=== PATIENT | female | born 1970 | race Caucasian/White ===

== ENCOUNTER 2017-03-21 10:13 | Emergency (ER) | payer OTHER ==
[~2017-03-21] VITALS: Ht 157.5 cm; Wt 59.0 kg
[~2017-03-21 10:13] MED LIST: AZIT250T PO; CIPR500S2 PO; METO25TA60 PO; PRED20TA PO
--- OUTSIDE RECORDS SUMMARY | 2017-03-21 10:18 | XMS REPORT | Continuity of Care Document ---
Author Author [facility] Address Unknown Phone Unavailable Allergies Active Description Code Type Severity Reaction Onset Reported/Identified Relationship to Patient Clinical Status Yes Penicillins [id number] Drug Allergy Moderate tissue swelling 08/06/2014 Medications Problems Date Dx Coded Attending Type Code Diagnosis Diagnosed By 08/06/2014 SONIA MULLER, CHAVEZ Goins Ot 305.1 TOBACCO USE DISORDER 08/06/2014 SONIA MULLER, CHAVEZ L Ot 493.90 ASTHMA, UNSPECIFIED 08/06/2014 CHAVEZ SCOTT MD Ot 493.92 ASTHMA, UNSPECIFIED, W (ACUTE) EXACERBAT 09/12/2014 CHAVEZ SCOTT MD Ot 786.09 10/16/2014 ROHINI SHANE MD Ot 282.7 10/16/2014 ACOSTA MULLER, ROHINI Hagan Ot 493.90 06/04/2015 ROHINI SHANE MD Ot 788.1 06/11/2015 ROHINI SHANE MD Ot 788.1 07/29/2015 ROHINI SHANE MD Ot V70.0 12/29/2015 ROHINI SHANE MD Ot V72.62 12/29/2015 ROHINI SHANE MD Ot 282.7 12/29/2015 ROHINI SHANE MD Ot 493.90 12/29/2015 ROHINI SHANE MD Ot 282.7 12/29/2015 ROHINI SHANE MD Ot 790.4 12/29/2015 CHAVEZ SCOTT MD Ot 786.09 12/29/2015 ROHINI SHANE MD Ot 788.1 12/29/2015 ROHINI SHANE MD Ot V70.0 12/29/2015 ROHINI SHANE MD Ot R35.0 12/29/2015 CHICO AGUILERA MD Ot N39.0 URINARY TRACT INFECTION, SITE NOT SPECIF 12/29/2015 CHICO AGUILERA MD Ot R30.0 DYSURIA 01/06/2016 ACOSTA MULLER, ROHINI Hagan Ot R35.0 01/07/2016 ALE MULLER, CHICO Jeffries Ot N39.0 01/07/2016 ALE MULLER, CHICO Jeffries Ot R30.0 01/07/2016 ALE MULLER, CHICO Jeffries Ot N39.0 01/07/2016 ALE MULLER, CHICO Jeffries Ot R30.0 01/09/2016 ALE MULLER, CHICO Jeffries Ot N39.0 01/09/2016 ALE MULLER, CHICO Jeffries Ot R30.0 07/21/2016 ROHINI SHANE MD Ot V72.62 LAB EXAM ORDERED PART OF A ROUTINE GE 07/21/2016 ACOSTA MULLER, ROHINI Hagan Ot 282.7 HEMOGLOBINOPATHIES NEC 07/21/2016 ACOSTA MULLER, ROHINI Hagan Ot 493.90 ASTHMA, UNSPECIFIED 07/21/2016 ACOSTA MULLER, ROHINI Hagan Ot 282.7 HEMOGLOBINOPATHIES NEC 07/21/2016 ACOSTA MULLER, ROHINI Hagan Ot 790.4 ELEV TRANSAMINASE/LDH 07/21/2016 SONIA MULLER, CHAVEZ L Ot 786.09 RESPIRATORY ABNORM NEC 07/21/2016 ACOSTA MULLER, ROHINI Hagan Ot 788.1 DYSURIA 07/21/2016 ROHINI SHANE MD Ot V70.0 ROUTINE MEDICAL EXAM 07/21/2016 ROHINI SHANE MD Ot R35.0 FREQUENCY OF MICTURITION 07/27/2016 ROHINI SHANE MD Ot E78.0 PURE HYPERCHOLESTEROLEMIA 07/27/2016 ROHINI SHANE MD Ot I10 ESSENTIAL (PRIMARY) HYPERTENSION 07/27/2016 ROHINI SHANE MD Ot J45.40 MODERATE PERSISTENT ASTHMA, UNCOMPLICATE 07/27/2016 ROHINI SHANE MD Ot Z00.00 ENCNTR FOR GENERAL ADULT MEDICAL EXAM W / 08/03/2016 ROHINI SHANE MD Ot E78.0 PURE HYPERCHOLESTEROLEMIA 08/03/2016 ROHINI SHANE MD Ot I10 ESSENTIAL (PRIMARY) HYPERTENSION 08/03/2016 ROHINI SHANE MD Ot J45.40 MODERATE PERSISTENT ASTHMA, UNCOMPLICATE 08/03/2016 ROHINI SHANE MD Ot Z00.00 ENCNTR FOR GENERAL ADULT MEDICAL EXAM W / 08/10/2016 ROHINI SHANE MD, Ot E78.0 PURE HYPERCHOLESTEROLEMIA 08/10/2016 ROHINI SHANE MD, Ot I10 ESSENTIAL (PRIMARY) HYPERTENSION 08/10/2016 ROHINI SHANE MD, Ot J45.40 MODERATE PERSISTENT ASTHMA, UNCOMPLICATE 08/10/2016 ROHINI SHANE MD, Ot Z00.00 ENCNTR FOR GENERAL ADULT MEDICAL EXAM W / Procedures Results Test Result Range Complete blood count (CBC) with automated white blood cell (WBC) differential - 07/21/16 07:28 Blood automated leukocyte count 8.08 4.0 -11.0 Erythrocytes 4.55 4.00-5.00 12.0-16.0;g/dL 15.1 12.0-15.5 Hematocrit 44.10 35.00-45.00 Automated erythrocyte mean corpuscular volume 97 80-100 Mean corpuscular hemoglobin (MCH) determination 33.2 26.0-34.0 Automated erythrocyte mean corpuscular hemoglobin concentration measurement ( mass/volume) 34.2 31.0-37.0 Erythrocyte distribution width 12.0 11.8 -15.6 Automated blood platelet count 288 150- 450 Automated blood platelet mean volume measurement 10.8 6.0-9.5 Automated neutrophil percentage 57 51- 67 Lymphocytes/100 leukocytes 32 20-46 Automated monocyte percentage 7 3-11 Eosinophil count auto 4 0-4 Automated basophil percentage 1 0-2 Automated blood neutrophil count 4.6 Blood lymphocytes count (number/volume) 2.6 Automated blood monocyte count 0.5 Blood absolute eosinophil count 0.3 Basophils 0.1 Comprehensive metabolic panel - 07/21/16 07:28 Sodium measurement 93 70-110 Carbon dioxide measurement 28 22-29 Serum or plasma anion gap 15.6 3-15 BLOOD UREA NITROGEN 7 7-18 CREATININE SERUM 0.60 0.6-1.2 Brucella species antibody panel (IgG, IgM) 12 10-20 Estimated glomerular filtration rate (GFR) 131.4 Estimated glomerular filtration rate (GFR) non- 108.6 OSMOLALITY,CALCULATED 274 280-300 CALCIUM 9.8 8.8-10.8 Calculated ionized calcium measurement 4.1 3.8-4.6 BILIRUBIN,TOTAL 0.9 0.1-1.0 Serum or plasma alkaline phosphatase measurement 75 38-126 ASPARTATE AMINO TRANSFERASE 31 15-37 ALANINE AMINOTRANSFERASE 26 30-65 Serum or plasma total protein measurement 7.9 6.4-8.5 Serum or plasma albumin measurement 4.6 3.4-5.0 Serum or plasma albumin/globulin mass ratio 1.393 1.1-1.8 General health panel - 07/21/16 07:28 Total cell count 1.40 0.46-4.68 LIPID PANEL - 07/21/16 07:28 Cholesterol 190 50-200 HDL Cholesterol 66 40-60 Triglycerides 84 10-150 LDL CHOLESTEROL 107 50-130 VLDL Cholesterol, calc 17 4.00-34.00 Cholesterol.total/Cholesterol.in HDL 2.9 0.0-5.0 Encounters ACCT No. Visit Date/Time Discharge Status Pt. Type Provider Facility Loc./Unit Complaint [id number] 12/29/2015 08:15:00 2015 09:40:00 DIS Emergency ALE MULLER, [facility] ED [id number] 07/10/2015 06:57:00 2014 23:59:59 CLS Outpatient ACOSTA MULLER, [facility] LAB [id number] 05/27/2015 16:50:00 2014 23:59:59 CLS Outpatient ACOSTA MULLER, [facility] LAB DROP OFF FROM DR OFFICE [id number] 08/06/2014 21:22:00 2013 23:59:59 CLS Outpatient SONIA MULLER, [facility] EMS TRANSFER FROM HOME TO [place] [facility] /ILLNESS [id number] 08/06/2014 21:32:00 2013 23:52:00 DIS Emergency SONIA MULLER, [facility] ED [id number] 06/19/2014 08:23:00 2013 23:59:59 CLS Outpatient ACOSTA MULLER, [facility] LAB [id number] 06/12/2014 16:38:00 2013 23:59:59 CLS Outpatient ACOSTA MULLER, [facility] RT 282.7 elevated hemoglobin, 493.0 asthma [id number] 06/04/2014 08:13:00 2013 23:59:59 CLS Outpatient ACOSTA MULLER [facility] LAB [id number] 07/21/2016 07:24:00 ACT Outpatient ACOSTA MULLER, [facility] LAB [id number] 12/09/2015 10:32:00 THOMAS Outpatient ACOSTA MULLER, [facility] LAB LAB DROP OFF FROM DR. SHAEN OFFICE
[2017-03-21] MEDS ORDERED: LORA-404 PO (10:25)
[2017-03-21] MEDS ORDERED: PHEN95TA30 PO (10:25)
[2017-03-21 10:53] LABS: CLARITY,URINE Clear; COLOR,URINE Amber; GLUCOSE, URINE (UA) 1+ (Negative); LEUKOCYTE ESTERASE ,URINE 3+ (Negative); UROBILINOGEN,URINE >=8.0 mg/dL (0.2-1.0)
[2017-03-21 10:54] LABS: BILIRUBIN,URINE 2+ (Negative)
[2017-03-21 11:11] LABS: URINE CENTRIFUGED VOLUME 12 mL
[2017-03-21 11:14] LABS: RBC,URINE 20-50 /HPF
[2017-03-21] MEDS ORDERED: CPR500T PO (11:45)
[2017-03-21 11:56] VITALS: BP 102/63
== END 2017-03-21 11:58 | disposition home or self-care (01) ==
LOC: EDUNIT# 10:13 → ED 10:15
DX: N39.0 Urinary tract infection, site not specified (principal)
CPT/HCPCS: 81003; 81015; 87088; 99282; 99283